=== PATIENT | male | born 1945 | race Caucasian/White ===

== ENCOUNTER 2018-05-13 04:57 | Emergency (ER) | payer OTHER ==
[~2018-05-13] VITALS: Ht 167.6 cm; Wt 108.9 kg
[~2018-05-13 04:57] MED LIST: AMOX1TAB12 PO; CALAN SR 120MG120 MG; CALAN SR120 MG PO; CEFADROXIL500 MG PO; CELEBREX100 MG PO; NABUMETONE500 MG PO; PERCOCET 5/3251 TAB PO; SEPTRA DS TABLE1 TAB PO; TORADOL10 MG PO
[2018-05-13] MEDS ORDERED: TAMS0.4C (05:20)
[2018-05-13] MEDS ORDERED: MOBIC15 MG PO (09:03)
[2018-05-13] MEDS ORDERED: NORFLEX100MG PO (09:03)
== END 2018-05-13 09:16 | disposition home or self-care (01) ==
LOC: ER 04:57
DX: M54.5 Low back pain (principal)

== ENCOUNTER 2018-11-09 09:11 | Inpatient (IN) | payer OTHER ==
[~2018-11-09] VITALS: Ht 177.8 cm; Wt 99.8 kg
[~2018-11-09 09:11] MED LIST changes: +MOBIC15 MG PO; +NORFLEX100MG PO; +TAMS0.4C
== END 2018-11-11 10:58 | disposition home or self-care (01) | DRG 639 ==
LOC: ER 09:11 → SEC-K 21:03 → MEDJ 21:03
PROVIDERS: ADMIT Internal Medicine
PROC: B020ZZZ Computerized Tomography (CT Scan) of Brain (ICD-10-PCS; principal; 2018-11-09)
PROC: B246ZZZ Ultrasonography of Right and Left Heart (ICD-10-PCS; 2018-11-09)
PROC: B030ZZZ Magnetic Resonance Imaging (MRI) of Brain (ICD-10-PCS; 2018-11-09)
PROC: B348ZZZ Ultrasonography of Bilateral Internal Carotid Arteries (ICD-10-PCS; 2018-11-09)
PROC: 4A12X4Z Monitoring of Cardiac Electrical Activity, External Approach (ICD-10-PCS; 2018-11-09)
DX: E11.69 Type 2 diabetes mellitus with other specified complication (principal); R42 Dizziness and giddiness; E66.01 Morbid (severe) obesity due to excess calories; R55 Syncope and collapse; M54.89 Other dorsalgia; E86.0 Dehydration; E87.8 Other disorders of electrolyte and fluid balance, not elsewhere classified; Z79.4 Long term (current) use of insulin; R79.89 Other specified abnormal findings of blood chemistry; Z86.73 Personal history of transient ischemic attack (TIA), and cerebral infarction without residual deficits
CPT/HCPCS: 70551